=== PATIENT | male | born 1980 | race American Indian/Alaskan Native ===

== ENCOUNTER 2020-07-15 11:54 | Outpatient (CLI) | payer BC ==
--- NOTE | 2020-07-16 08:46 | Ultrasound Report ---
ULTRASOUND RENAL INDICATION / CLINICAL INFORMATION: MICROSCOPIC HEMATURIA. COMPARISON: None available. FINDINGS: RIGHT KIDNEY: Length = 10.2 cm. - Echogenicity: Normal. - Cortical Thickness: Normal. - Hydronephrosis: None. - Cyst or mass: No significant abnormality. - Stones: None seen. LEFT KIDNEY: Length = 10.7 cm. - Echogenicity: Normal. - Cortical Thickness: Normal. - Hydronephrosis: None. - Cyst or mass: No significant abnormality. - Stones: None seen. URINARY BLADDER: No significant abnormality. FREE FLUID: None. ADDITIONAL FINDINGS: None. IMPRESSION: 1. No significant abnormality. Signer Name: Marlon Irizarry MD Signed: 07/16/2020 8:41 AM Workstation Name: [id number]
== END 2020-07-15 11:55 | disposition home or self-care (01) ==
LOC: US 11:54
PROVIDERS: ATTEND Physician Assistant
DX: R31.29 Other microscopic hematuria (principal)
CPT/HCPCS: 76770